=== PATIENT | female | born 1985 | race Caucasian/White ===

== ENCOUNTER 2018-08-19 12:43 | Emergency (ER) | payer OTHER ==
[2018-08-19] MEDS ORDERED: ALBUTEROL SO4 0.083% IH SOL 2.5 MG/3 ML VIAL.NEB. NEB ONE (12:49)
--- NOTE | 2018-08-19 12:55 | PDOC ---
History of Present Illness - General Chief Complaint: Asthma Stated Complaint: ASTHMA ATTACK Time Seen by Provider: 08/19/18 12:45 History Source: Patient, EMS Exam Limitations: No Limitations - History of Present Illness Initial Comments: 08/19/18 12:49 33 year old female with PMH asthma, hypothyroidism presented to ED for SOB <1 hour. Pt was at her son's ENT appointment when she began to feel SOB and that her throat was swelling. She stated her symptoms felt similar to prior asthma exacerbations. She denied chest pain, palpitations, cough, fever, chills, nausea , vomiting, abdominal pain. She stated she takes her albuterol inhaler every 4 hours, and has not missed a dose. She stated she takes Flovent twice a day, and has not missed a dose. Allergies: NKDA Past History - Past Medical History Allergies/Adverse Reactions: Allergies Allergy/AdvReac Type Severity Reaction Status Date / Time amoxicillin Allergy Intermediate Vomiting Verified 08/19/18 12:56 lamotrigine [From Lamictal] AdvReac Severe Difficulty Verified 08/19/18 12:56 Breathing Home Medications: Ambulatory Orders Albuterol 0.083% Nebulizer Marita [Ventolin 0.083% Nebulizer Soln -] 1 neb NEB Q4H PRN #30 vial 08/19/18 Albuterol Sulfate Inhaler - [Ventolin Hfa Inhaler -] 1 - 2 inh PO Q4H 08/19/18 Fluticasone Propionate [Flovent Diskus] 0 mcg IH DAILY 08/19/18 Levothyroxine [Synthroid -] 75 mcg PO DAILY 08/19/18 Methylprednisolone [Medrol Dose Marck] 4 mg PO ASDIR #21 tablet 08/19/18 Sertraline HCl [Zoloft] 200 mg PO DAILY 08/19/18 Review of Systems - Review of Systems Able to Perform ROS?: Yes Comments:: 08/19/18 12:53 General: denied fever, chills, generalized weakness. HEENT: admitted to neck swelling. denied sore throat, rhinorrhea, ear pain. Heart: denied chest pain, palpitations, syncope, diaphoresis. Respiratory: admitted to shortness of breath. denied cough, sputum production, hemoptysis. Abdomen: denied abdominal pain, nausea, vomiting, diarrhea, constipation, blood in stool. : denied dysuria, increased urinary frequency, hematuria, urinary incontinence , flank pain. Back: denied back pain. Musculoskeletal: denied joint pain, muscle pain, joint swelling. Neurological: denied headache, dizziness, numbness, tingling, weakness. Skin: denied rash, laceration, abrasion. *Physical Exam - Physical Exam Comments: 08/19/18 12:54 Constitutional: Well-nourished, Well-developed, appearing stated age. HEENT: head is normocephalic, atraumatic. EOMI. PERRLA. no airway swelling, no uvula swelling, no neck swelling. no stridor. Neck: supple. Full ROM. Heart: regular rhythm. no murmurs, rubs or gallops. Lungs: clear to auscultation bilaterally. no crackles, rhonchi or wheezing. no stridor. speaking full sentences calmly. Abdomen: soft, nontender. normal bowel sounds. no rebound, guarding, masses. Extremities: peripheral pulses intact. no lower extremity edema. no calf tenderness bilaterally. Neurological: CN 2-12 grossly intact. moves all four extremities. Psych: awake, alert, oriented x3. follows commands. answers questions appropriately. Medical Decision Making - Medical Decision Making 08/19/18 12:55 33 year old female with above PMH presented to ED for SOB associated with sensation of throat/neck swelling. Initial Vital Signs Temp Pulse Resp BP Pulse Ox 97.6 F 59 L 20 118/55 L 99 08/19/18 12:44 08/19/18 12:44 08/19/18 12:44 08/19/18 12:44 08/19/18 12:44 Afebrile. No tachycardia. No tachypnea. Mild diastolic hypotension. No hypoxia on room air. Labs ordered: none Imaging ordered: none Medications ordered: albuterol nebulizer solution EKG performed at 1328: rate 68, regular rhythm, normal axis, normal intervals, flipped T in III, otherwise no acute ST changes. 08/19/18 13:43 Pt reported improvement of symptoms. Likely symptoms are from seasonal allergies , exacerbating asthma. Pt discharged. Discharge medications: Medrol dose pack *DC/Admit/Observation/Transfer Diagnosis at time of Disposition: Shortness of breath, Asthma - Discharge Dispostion Disposition: HOME Condition at time of disposition: Improved Decision to Admit order: No - Prescriptions Prescriptions: Albuterol 0.083% Nebulizer Marita [Ventolin 0.083% Nebulizer Soln -] 1 neb NEB Q4H PRN #30 vial PRN Reason: Asthma Methylprednisolone [Medrol Dose Marck] 4 mg PO ASDIR #21 tablet - Referrals - Patient Instructions Printed Discharge Instructions: DI for Asthma -- Adult, DI for Shortness of Breath Additional Instructions: You were seen today for shortness of breath. Your EKG was normal. I have sent a prescription to your pharmacy for a medrol dose pack (steroid), take as advised on package. I have sent a prescription to your pharmacy for nebulizer solution, take as advised on package. Follow up with your primary care doctor within 5 days. Bring all paperwork given to you today to your appointment. Your care is not complete until you follow up. Return to the Emergency Department for shortness of breath despite nebulizer use , chest pain, unequal swelling in the legs, palpitations, fever, vomiting or any other new, worsening or concerning symptoms. - Post Discharge Activity Forms/Work/School Notes: Back to Work
[2018-08-19 13:02] VITALS: BP 118/55; PULSE 59; TEMP 97.6; BMI 37.5
--- NOTE | 2018-08-19 13:21 | PDOC ---
Attending Attestation - Resident Resident Name: Eli Acuña - ED Attending Attestation I have performed the following: I have examined & evaluated the patient, The case was reviewed & discussed with the resident, I agree w/resident's findings & plan - HPI HPI: 08/19/18 13:19 33-year-old female with history of mild intermittent asthma with known triggers of URI and seasonal ALLERGIES presents brought in by EMS after complaints of onset of shortness of breath and wheezing while at the ENT office having her daughter evaluated. Patient has been taking daily Advair and ALLERGY eyedrops over the pollen season the last few weeks, has had no other URI symptoms or asthma exacerbation symptoms until she was at the office and developed chest congestion and wheeze, brought in for evaluation. Feels like her typical asthma, denies any other chest pain or exertional limitations, no fevers or chills or rhinorrhea. - Physicial Exam PE: 08/19/18 13:20 O2 sat 99% on room air, respiratory rate is normal, she speaking full sentences and in no respiratory distress Alert, ambulating, no stridor, oropharynx clear Heart is regular without murmur Left-sided expiratory wheezing without focally decreased breath sounds or accessory muscle use or crackles, otherwise good air entry without prolonged expiration. Peak flow 225 with audible wheezing on forced expiration bilaterally. Abdomen benign No calf tenderness or edema - Medical Decision Making 08/19/18 13:21 33-year-old female with mild asthma exacerbation, likely triggered by seasonal ALLERGIES as is her history. Hemodynamically stable with normal O2 sat and no acute respiratory distress, some wheezing on exam. EKG Trial of nebulizer Reassess Heart Score/ECG Review #1 ECG reviewed & interpreted by me at: 13:28 General ECG Interpretation: Sinus Rhythm, Normal Rate (68), Normal Intervals ( qtc 446), No acute ischemic changes
--- NOTE | 2018-08-20 08:25 | EKG ---
Test Reason : Blood Pressure : / mmHG Vent. Rate : 068 BPM Atrial Rate : 068 BPM P-R Int : 154 ms QRS Dur : 074 ms QT Int : 420 ms P-R-T Axes : 032 037 011 degrees QTc Int : 446 ms NORMAL SINUS RHYTHM NORMAL ECG NO PREVIOUS ECGS AVAILABLE Confirmed by NESS DIEZ, KIM ([id number]) on 08/20/2018 8:25:14 AM Referred By: TRESSA CROCKER Confirmed By:KIM ARZOLA MD
== END 2018-08-19 14:16 | disposition home or self-care (01) ==
LOC: FER 12:43
PROC: 3E0F7GC Introduction of Other Therapeutic Substance into Respiratory Tract, Via Natural or Artificial Opening (ICD-10-PCS; principal; 2018-08-19)
DX: R06.02 Shortness of breath (principal); J45.909 Unspecified asthma, uncomplicated; E03.9 Hypothyroidism, unspecified; Z88.1 Allergy status to other antibiotic agents
CPT/HCPCS: 93005; 94640; 99281-25